=== PATIENT | female | born 1985 | race Caucasian/White ===

== ENCOUNTER → 2020-04-27 | Outpatient (CLI) | payer OTHER ==
[~2020-04-27] MED LIST: DOK100 MG PO; HYDROCODON-ACE1 EAC4 PO; PRENATAL VITAM1 EAC8 PO; VALACYCLOVIR500 MG PO
[2020-04-27 12:15] LABS: URINE TOTAL PROTEIN 10 mg/dl
== END ==
LOC: LAB 11:33
PROVIDERS: Obstetrics & Gynecology
DX: O13.3 Gestational [pregnancy-induced] hypertension without significant proteinuria, third trimester (principal)
CPT/HCPCS: 84156

== ENCOUNTER 2020-05-17 13:24 | Inpatient (IN) | payer OTHER ==
[~2020-05-17] VITALS: Ht 154.9 cm; Wt 88.5 kg
[2020-05-17 15:02] LABS: HEMOGLOBIN 12.7 gm/dl (12.3-15.3); RED BLOOD COUNT 4.39 M/UL (4.00-5.10); WHITE BLOOD COUNT 9.5 K/UL (4.5-11.0)
[2020-05-17] MEDS ORDERED: VALACYCLOVIR500 MG PO (15:33)
[2020-05-17] MEDS ORDERED: PRENATAL VITAM1 EAC8 PO (15:34)
[2020-05-17] MEDS ORDERED: DOK100 MG PO (15:34)
[2020-05-17 17:20] LABS: BUN/CREATININE RATIO 12 (0-10)
[2020-05-20 07:04] LABS: HEMOGLOBIN 9.7 gm/dl (12.3-15.3)
[2020-05-21] MEDS ORDERED: HYDROCODON-ACE1 EAC4 PO (13:46)
== END 2020-05-21 15:33 | disposition home or self-care (01) | DRG 787 ==
LOC: OB 14:26
PROVIDERS: Obstetrics & Gynecology; ADMIT Obstetrics & Gynecology
PROC: 10907ZC Drainage of Amniotic Fluid, Therapeutic from Products of Conception, Via Natural or Artificial Opening (ICD-10-PCS; 2020-05-19)
PROC: 10D00Z1 Extraction of Products of Conception, Low, Open Approach (ICD-10-PCS; principal; 2020-05-19 22:16)
DX: O62.1 Secondary uterine inertia (principal); D62 Acute posthemorrhagic anemia; O98.32 Other infections with a predominantly sexual mode of transmission complicating childbirth; Z3A.38 38 weeks gestation of pregnancy; Z37.0 Single live birth; Z20.822 Contact with and (suspected) exposure to COVID-19; O13.4 Gestational [pregnancy-induced] hypertension without significant proteinuria, complicating childbirth; O90.81 Anemia of the puerperium; A63.0 Anogenital (venereal) warts; A56.8 Sexually transmitted chlamydial infection of other sites; A60.00 Herpesviral infection of urogenital system, unspecified; O99.824 Streptococcus B carrier state complicating childbirth
CPT/HCPCS: 36415; 80053; 81001; 82800; 84550; 85014; 85018; 85025; 90471; 90715; C9113; J0690; J1885; J2250; J2274; J2405; J2550; J2590; J2765; J7120; U0002